=== PATIENT | female | born 1945 | race Caucasian/White ===

== ENCOUNTER 2021-07-20 07:28 | Day surgery (SDC) | payer OTHER, SELFPAY ==
[~2021-07-20] VITALS: Ht 134.6 cm; Wt 56.7 kg
[2021-07-20] MEDS ORDERED: fentaNYL citrate 0.05 MG/ML VIAL ONE (10:59)
[2021-07-20] MEDS ORDERED: LIDOCAINE 2% 100 MG/5 ML UJET TP ONE (10:59)
[2021-07-20] MEDS ORDERED: diphenhydrAMINE 50 MG/ML VIAL ONE (10:59)
[2021-07-20] MEDS ORDERED: MIDAZOLAM 2 MG/2 ML VIAL ONE (10:59)
[2021-07-20] MEDS: fentaNYL citrate 0.05 MG/ML VIAL IVP ONE (11:06)
[2021-07-20] MEDS: MIDAZOLAM 2 MG/2 ML VIAL IVP ONE (11:07)
[2021-07-20] MEDS: LIDOCAINE 2% 100 MG/5 ML UJET TP ONE (11:07)
== END 2021-07-20 12:40 | disposition home or self-care (01) ==
LOC: MDS 07:28 → MMU 07:29 → MDS 12:40
PROVIDERS: ATTEND Internal Medicine Gastroenterology
DX: K62.5 Hemorrhage of anus and rectum (principal); K57.30 Diverticulosis of large intestine without perforation or abscess without bleeding; E11.9 Type 2 diabetes mellitus without complications; Z79.82 Long term (current) use of aspirin; Z79.4 Long term (current) use of insulin; Z79.899 Other long term (current) drug therapy; Z20.822 Contact with and (suspected) exposure to COVID-19
CPT/HCPCS: 45378; 82948; 87426; J2250; J3010; J1200